=== PATIENT | male | born 1945 | race American Indian/Alaskan Native ===

== ENCOUNTER 2019-05-08 07:55 | Outpatient (CLI) | payer MEDICARE ==
[2019-05-08] MEDS ORDERED: XYLOCAINE TOPICAL 4% TP ONE (08:16)
== END 2019-05-08 07:56 | disposition home or self-care (01) ==
LOC: WOUND 07:55
PROVIDERS: ATTEND Surgery
DX: I87.312 Chronic venous hypertension (idiopathic) with ulcer of left lower extremity (principal); L97.822 Non-pressure chronic ulcer of other part of left lower leg with fat layer exposed
CPT/HCPCS: 11042; 11045; G0463; 99204

== ENCOUNTER 2019-05-29 07:53 | Outpatient (CLI) | payer MEDICARE ==
[2019-05-29] MEDS ORDERED: XYLOCAINE TOPICAL 4% TP ONE (08:30)
[2019-05-29] MEDS ORDERED: AD OINTMENT TP PRN (09:00)
== END 2019-05-29 07:54 | disposition home or self-care (01) ==
LOC: WOUND 07:53
PROVIDERS: ATTEND Surgery
DX: I87.312 Chronic venous hypertension (idiopathic) with ulcer of left lower extremity (principal); L97.822 Non-pressure chronic ulcer of other part of left lower leg with fat layer exposed
CPT/HCPCS: A6250

== ENCOUNTER 2019-06-05 07:54 | Outpatient (CLI) | payer MEDICARE ==
[2019-06-05] MEDS ORDERED: SILVER NITRATE TP ONE (08:06)
[2019-06-05] MEDS ORDERED: XYLOCAINE TOPICAL 4% TP ONE (08:06)
[2019-06-05] MEDS ORDERED: AD OINTMENT TP PRN (09:30)
== END 2019-06-05 07:55 | disposition home or self-care (01) ==
LOC: WOUND 07:54
PROVIDERS: ATTEND Surgery
DX: I87.312 Chronic venous hypertension (idiopathic) with ulcer of left lower extremity (principal); L97.822 Non-pressure chronic ulcer of other part of left lower leg with fat layer exposed; I87.8 Other specified disorders of veins
CPT/HCPCS: 29581

== ENCOUNTER 2019-06-12 07:55 | Outpatient (CLI) | payer MEDICARE ==
[2019-06-12] MEDS ORDERED: SILVER NITRATE TP ONE (08:30)
[2019-06-12] MEDS ORDERED: AD OINTMENT TP PRN (08:30)
[2019-06-12] MEDS ORDERED: XYLOCAINE TOPICAL 4% TP ONE (08:30)
== END 2019-06-12 07:56 | disposition home or self-care (01) ==
LOC: WOUND 07:55
PROVIDERS: ATTEND Surgery
DX: I87.312 Chronic venous hypertension (idiopathic) with ulcer of left lower extremity (principal); L97.822 Non-pressure chronic ulcer of other part of left lower leg with fat layer exposed; I87.2 Venous insufficiency (chronic) (peripheral); L84 Corns and callosities
CPT/HCPCS: 29581; A6250

== ENCOUNTER 2019-06-26 08:00 | Outpatient (CLI) | payer MEDICARE | END 2019-06-26 08:01 | disposition home or self-care (01) | LOC: WOUND 08:00 | PROVIDERS: ATTEND Surgery | DX: I87.312 Chronic venous hypertension (idiopathic) with ulcer of left lower extremity (principal); L97.822 Non-pressure chronic ulcer of other part of left lower leg with fat layer exposed; L84 Corns and callosities ==